=== PATIENT | female | born 1970 | race African-American/Black ===

== ENCOUNTER 2022-01-21 20:47 | Emergency (ER) | payer OTHER ==
[~2022-01-21] VITALS: Ht 172.7 cm; Wt 85.0 kg
[2022-01-21] MEDS ORDERED: SODIUM CHLORIDE 0.9% 1,000 ML IV ONE (21:45)
[2022-01-21 22:07] LABS: BASOPHILS % 0.3 % (0.0-2.0); HEMATOCRIT. 43.9 % (36.0-48.0); HEMOGLOBIN. 14.3 g/dL (12.0-16.0); LYMPHOCYTES % 19.5 % (20.0-50.0); MEAN CORPUSCULAR HEMOGLOBIN 28.2 pg (28.0-32.0); MEAN CORPUSCULAR VOLUME 86.2 fL (81.0-99.0); MEAN PLATELET VOLUME 8.8 fl (7.4-10.4); MONOCYTES % 6.1 % (2.0-8.0); NEUTROPHILS % 72.1 % (40.0-76.0); PLATELET 255 x1000/uL (130-400); RED BLOOD CELL COUNT 5.09 mill/uL (4.2-5.4); RED CELL DISTRIBUTION WIDTH 14.1 % (11.6-14.6)
[2022-01-21 22:10] LABS: CHLORIDE 108 mEq/L (98-107)
[2022-01-21 22:23] LABS: ETHANOL BLOOD < 10 mg/dL
[2022-01-22 01:56] VITALS: BP 142/86
== END 2022-01-22 02:00 | disposition home or self-care (01) ==
LOC: ER 20:47
DX: R55 Syncope and collapse (principal); R94.31 Abnormal electrocardiogram [ECG] [EKG]; I10 Essential (primary) hypertension
CPT/HCPCS: 36415; 70450; 71045; 80053; 80320; 83880; 85025; 93005; 96360; 96361; 99285; J7030; G0480